=== PATIENT | male | born 1950 | race Caucasian/White ===

== ENCOUNTER 2020-10-03 06:58 | Day surgery (SDC) | payer MEDICARE ==
[~2020-10-03] VITALS: Ht 170.2 cm; Wt 69.1 kg
[~2020-10-03 06:58] MED LIST: HYDR-2214 PO; TAMS-11 PO
[2020-10-03] MEDS ORDERED: SODIUM CHLORIDE 0.9% 1,000 ML IV SCH (07:30)
[2020-10-03 07:38] VITALS: BP 134/83
[2020-10-03] MEDS ORDERED: LISI20TA21 PO (08:03)
[2020-10-03] MEDS ORDERED: CYAN1TAB PO (08:06)
[2020-10-03] MEDS ORDERED: ATOR20TA86 PO (08:06)
[2020-10-03] MEDS ORDERED: FOLI1TAB32 PO (08:06)
[2020-10-03 08:07] LABS: BASOPHILS % (AUTO) 0 % (0-1); EOSINOPHILS % (AUTO) 4 % (1-7); LYMPHOCYTES % (AUTO) 32 % (22-44); MEAN CORPUSCULAR HEMOGLOBIN 34.6 pg (27.5-34.5); MEAN CORPUSCULAR HGB CONC 33.7 g/dL (33.2-36.2); MEAN PLATELET VOLUME 6.6 fL (7.4-10.4); MONOCYTES % (AUTO) 3 % (2-9); NEUTROPHILS % (AUTO) 61 % (42-75); PLATELET COUNT 216 x10^3/uL (130-400); RED BLOOD COUNT 3.05 x10^6/uL (4.38-5.82); RED CELL DISTRIBUTION WIDTH 16.1 % (9.4-14.8)
[2020-10-03] MEDS ORDERED: METO-282 PO (08:17)
[2020-10-03] MEDS ORDERED: symbicort (08:18)
[2020-10-03] MEDS ORDERED: NALOXONE 1 MG/ML, 2ML ONE (08:53)
[2020-10-03] MEDS ORDERED: FENTANYL PF 100 MCG/2ML ONE (08:53)
[2020-10-03] MEDS ORDERED: MIDAZOLAM 1 MG/ML, 5ML ONE ×2 (08:53)
[2020-10-03] MEDS ORDERED: FLUMAZENIL 0.1 MG/1 ML, 5ML ONE (08:53)
== END 2020-10-03 10:50 | disposition home or self-care (01) ==
LOC: OUT 06:58
PROVIDERS: ATTEND Internal Medicine
DX: D50.9 Iron deficiency anemia, unspecified (principal); I10 Essential (primary) hypertension; J45.909 Unspecified asthma, uncomplicated; N17.9 Acute kidney failure, unspecified; E53.8 Deficiency of other specified B group vitamins; Z79.899 Other long term (current) drug therapy; Z88.8 Allergy status to other drugs, medicaments and biological substances; Z98.890 Other specified postprocedural states
CPT/HCPCS: 36415; 38222; 77012; 85025; 99156; J2250; J3010; J7030; 88184; 88185; 88237; 88264; 88374; J2310